=== PATIENT | male | born 1980 | race Caucasian/White ===

== ENCOUNTER 2019-10-14 13:17 | Observation (INO) | payer OTHER ==
[2019-10-14] MEDS ORDERED: SODIUM CHLORIDE 0.9% 1,000 ML IV STA (13:42)
[2019-10-14 14:01] LABS: BASOPHILS % (AUTO) 0.5 %; EOSINOPHILS # (AUTO) 0.1 10^3/uL (0.0-0.7); EOSINOPHILS % (AUTO) 0.9 %; HGB - HEMOGLOBIN 16.3 g/dL (14.0-18.0); LYMPHOCYTES # (AUTO) 1.8 10^3/uL (1.5-3.5); LYMPHOCYTES % (AUTO) 20.7 %; MEAN CORPUSCULAR HEMOGLOBIN 27.7 pg (27.0-31.0); MEAN CORPUSCULAR HGB CONC 33.2 g/dL (32.0-36.0); MEAN CORPUSCULAR VOLUME 83.5 fL (80.0-94.0); MEAN PLATELET VOLUME 9.1 fL (7.4-11.4); MONOCYTES # (AUTO) 0.6 10^3/uL (0.0-1.0); MONOCYTES % (AUTO) 6.6 %; NEUTROPHILS % (AUTO) 70.9 %; PLT - PLATELET COUNT 249 10^3/uL (130-450); RED BLOOD COUNT 5.88 10^6/uL (4.70-6.10); RED CELL DISTRIBUTION WIDTH 12.9 % (12.0-15.0); WHITE BLOOD COUNT 8.5 x10^3/uL (4.8-10.8)
[2019-10-14 14:15] LABS: ALBUMIN 4.7 g/dL (3.2-5.5); ALBUMIN/GLOBULIN RATIO 1.6 (1.0-2.2); BILIRUBIN,TOTAL 0.8 mg/dL (0.2-1.0); CALCIUM 9.6 mg/dL (8.5-10.3); CREATININE 1.1 mg/dL (0.6-1.2); TOTAL PROTEIN 7.7 g/dL (6.7-8.2)
--- NOTE | 2019-10-14 14:23 | XRAY Report ---
PROCEDURE: Chest 1 View X-Ray INDICATIONS: Chest Pain TECHNIQUE: One view of the chest was acquired. COMPARISON: None. FINDINGS: Surgical changes and devices: None. Lungs and pleura: No pleural effusions or pneumothorax. No acute consolidation. There are 2 small in distinct nodular opacities projecting over the right lung base likely represent confluence of vascula r and rib structures. Mediastinum: Mediastinal contours appear normal. Heart size is normal. Bones and chest wall: No suspicious bony lesions. Overlying soft tissues appear unremarkable. IMPRESSION: 1. No definite acute cardiopulmonary disease. Reviewed by: Jaylan Romano MD on 10/14/2019 2:21 PM PDT Approved by: Jaylan Romano MD on 10/14/2019 2:21 PM PDT Station ID: [id number]
--- NOTE | 2019-10-14 14:32 | ED Physician Documentation ---
History of Present Illness - Stated complaint Stated Complaint: DIZZY, LIGHTHEADED - Chief complaint Chief Complaint: General - History of Present Illness Timing: Prior to arrival, How many hours ago (6) - Additonal information Additional information: 39-year-old male presents to the emergency department for evaluation of feeling lightheaded dizzy and nauseated. He has been having persistent paroxysmal spells over the course of the morning. He states he had something similar when he was 18 and dehydrated. However approximately 2 weeks ago he did develop some chest pain and he saw his primary care doctor who then referred him to a thread winder. He is scheduled to have an echo and stress test in the upcoming set 7 to 10 days. However as he was very anxious he presents to the ED now. he did take 3 baby aspirin about 1 hour prior to arrival Patient reports to me that his EKG at the thread winder office was without concern. Patient states he has a newly diagnosed history of hypertension and hyperlipidemia. He has not been started on any medication. He is a social drinker. Non-smoker no history of illicit substance abuse At the time in the ED right now he denies chest pain or pressure. He does not feel short of breath. He endorses feeling anxious and nervous. Manager Of Information: Dr. Archuleta ([facility]) [phone] Review of Systems Constitutional: denies: Fever, Chills Cardiac: reports: Chest pain / pressure. denies: Palpitations, Pedal edema, Calf pain Respiratory: denies: Dyspnea, Cough GI: reports: Nausea. denies: Abdominal Pain, Abdominal Swelling, Vomiting : denies: Dysuria, Frequency PD PAST MEDICAL HISTORY - Past Medical History Past Medical History: Yes Cardiovascular: Hypertension, High cholesterol - Past Surgical History Past Surgical History: No - Allergies Allergies/Adverse Reactions: Allergies Allergy/AdvReac Type Severity Reaction Status Date / Time No Known Drug Allergies Allergy Verified 10/14/19 13:40 - Social History Does the pt smoke?: No Smoking Status: Never smoker PD ED PE NORMAL - General General: Alert and oriented X 3, No acute distress, Well developed/nourished - HEENT HEENT: PERRL, EOMI - Neck Neck: Supple, no meningeal sign, No bony TTP, No adenopathy - Cardiac Cardiac: RRR, No murmur, No gallop, No rub, Strong equal pulses - Respiratory Respiratory: No respiratory distress - Abdomen Abdomen: Normal bowel sounds, Non tender - Male Male : Deferred, Pt declined - Back Back: No CVA TTP, No spinal TTP - Derm Derm: Normal color, Warm and dry - Extremities Extremities: No deformity - Neuro Neuro: Alert and oriented X 3, instructional manager 2-12 intact, No motor deficit Eye Opening: Spontaneous Motor: Obeys Commands Verbal: Oriented GCS Score: 15 Results - Vitals Vitals: Vital Signs - 24 hr 10/14/19 10/14/19 13:28 15:39 Temperature 36.6 C Heart Rate 90 107 H Respiratory 16 17 Rate Blood Pressure 152/96 H 158/93 H O2 Saturation 100 100 Oxygen O2 Source Room air - EKG (time done) 1347 Rate: Rate (enter#) (94) Rhythm: NSR [place]: Normal Intervals: Normal UT QRS: Normal Ischemia: Other (t wave flattening diffusely) Compare to prior EKG: Old EKG unavailable Computer interpretation: Agree with computer 1442 Rhythm: NSR [place]: Normal Intervals: Normal UT QRS: Normal Ischemia: T wave inversion Compare to prior EKG: Changed from prior EKG Computer interpretation: Agree with computer (New T wave inversion V4 V5) - Labs Labs: Laboratory Tests 10/14/19 10/14/19 10/14/19 13:54 13:54 13:54 WBC 8.5 RBC 5.88 Hgb 16.3 Hct 49.1 MCV 83.5 MCH 27.7 MCHC 33.2 RDW 12.9 Plt Count 249 MPV 9.1 Neut # (Auto) 6.0 Lymph # (Auto) 1.8 Randolph # (Auto) 0.6 Eos # (Auto) 0.1 Baso # (Auto) 0.0 Absolute Nucleated RBC 0.00 Nucleated RBC % 0.0 Sodium 137 Potassium 3.4 L Chloride 99 L Carbon Dioxide 25 Anion Gap 13.0 BUN 14 Creatinine 1.1 Estimated GFR (MDRD) 74 L Glucose 129 H Calcium 9.6 Total Bilirubin 0.8 AST 28 ALT 37 Alkaline Phosphatase 67 Troponin I High Sens < 2.3 L Total Protein 7.7 Albumin 4.7 Globulin 3.0 Albumin/Globulin Ratio 1.6 Lipase 31 10/14/19 15:26 WBC RBC Hgb Hct MCV MCH MCHC RDW Plt Count MPV Neut # (Auto) Lymph # (Auto) Randolph # (Auto) Eos # (Auto) Baso # (Auto) Absolute Nucleated RBC Nucleated RBC % Sodium Potassium Chloride Carbon Dioxide Anion Gap BUN Creatinine Estimated GFR (MDRD) Glucose Calcium Total Bilirubin AST ALT Alkaline Phosphatase Troponin I High Sens < 2.3 L Total Protein Albumin Globulin Albumin/Globulin Ratio Lipase - Rads (name of study) CXR Radiology: Final report received (No acute cardiopulmonary process) PD MEDICAL DECISION MAKING - ED course Complexity details: reviewed results, re-evaluated patient, d/w patient, d/w sap basis consultant ED course: 39-year-old male presents to the emergency department for evaluation of nausea lightheadedness and Dizziness that has been paroxysmal. 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 His history is preceded by chest pain pressure approximately 2 weeks ago for which he was referred to c ardiologist Dr. Lan through [facility]. He has a pending stress test and echocardiogram upcoming in the next week. - On initial presentation his EKG shows diffuse T wave flattening. Patient has denied any chest pain, pressure or dyspnea while in the ED. His initial high- sensitivity troponin is negative. Approximately 1 hour after presentation I did repeat his EKG and noted that he had acute T wave inversions V4 V5. A second troponin was also ordered at that time and remained negative. - I was able to speak with his thread winder on the phone. He would recommend admission for stress test and echo at this time. He would not recommend transfer unless the troponins are positive. - I have spoken on the phone with her admitting hospitalist Dr. Fox and at this time she agrees to admit the patient to an observation status for stress test and echo. Troponins will be trended. Departure - Departure Disposition: ED Place in Observation Clinical Impression: Acute electrocardiogram changes, Light-headed feeling
[2019-10-14] MEDS ORDERED: NITROGLYCERIN SL 0.4 MG TABLET SL STA (14:35)
[2019-10-14] MEDS ORDERED: ASPIRIN CHEW 81 MG TABLET PO STA (14:47)
[2019-10-14] MEDS ORDERED: ZOLPIDEM 5 MG TABLET PO PRN (16:17)
[2019-10-14] MEDS ORDERED: MORPHINE 2 MG/ML CARPUJECT IVP PRN (16:17)
[2019-10-14] MEDS ORDERED: ACETAMINOPHEN 325 MG TABLET PO PRN (16:17)
[2019-10-14] MEDS ORDERED: ONDANSETRON 4 MG/2 ML VIAL IVP PRN (16:17)
[2019-10-14] MEDS ORDERED: SODIUM CHLORIDE FLUSH 0.9% 10 ML SYRINGE IVP PRN (16:17)
--- NOTE | 2019-10-14 17:28 | HISTORY & PHYSICAL EXAMINATION ---
Chief Complaint - Chief Complaint Chief Complaint: dizziness History of Present Illness - Admitted From Admitted From:: ER - History Obtained From Records Reviewed: [facility] History obtained from: pt - History of Present Illness HPI Comment/Other: 39-year-old male With past medical history of hypertension and hyperlipidemia but not on medication yet, Who presents to the emergency department for evaluation of nausea, and lightheadedness and Dizziness which has been paroxysmal. pt report he had chest pain pressure approximately 2 weeks ago for which he was referred by his PCP to compensation vice president Dr. Archuleta. pt had pending stress test and echocardiogram upcoming in the next week. He had nausea, and lightheadedness and Dizzinessa [place]. Patient denied chest pain, pressure or dyspnea while in the ER On ER, initial his EKG shows diffuse T wave flattening and initial high- sensitivity troponin is negative. but repeated EKG after one hour later show acute T wave inversions V4 V5. A second troponin also remained negative. ER provider speak with his compensation vice president on the phone. He would recommend admission for stress test and echo at this time. He would not recommend transfer unless the troponins are positive. pt was admitted in observation unit for further medical management. Discussed care goal with the patient, patient request full code History - Past Medical History Cardiovascular: reports: Hypertension, High cholesterol MRSA Hx?: No - Family & Social History Family History: Mother: Alive and Well, Father: Alive and Well Family History Comment/Other: Patient reported his father has hypertension and pre-diabetic. He did not know much about his mother Social History Notes: Patient denies cigarette smoking, denies alcohol and drug abusive or any issue Meds/Allgy - Allergies Allergies/Adverse Reactions: Allergies Allergy/AdvReac Type Severity Reaction Status Date / Time No Known Drug Allergies Allergy Verified 10/14/19 13:40 Review of Systems - Constitutional Constitutional: denies: Fatigue, Fever, Chills, Malaise, Weakness, Poor appetite, Diaphoresis, Night sweats - Eyes Eyes: denies: Pain, Blurred vision, Spots in vision, Field loss, Vision loss, Dipolpia - Ears, Nose & Throat Ears, Nose & Throat: denies: Ear pain, Hearing aids, Nasal discharge, Nosebleeds, Nasal congestion, Postnasal drainage, Mouth lesions, Dental decay - Cardiovascular Cariovascular: reports: Lightheadedness. denies: Irregular heart rate, Palpitations, Chest pain, Edema, Syncope, Exertional dyspnea, Decr. exercise tolerance - Respiratory Respiratory: denies: Cough, Sputum production, Wheezing, Snoring, Hemoptysis, Orthopnea, SOB at rest, SOB with exertion, Apnea - Gastrointestinal Gastrointestinal: denies: Abdominal pain, Constipation, Diarrhea, Change in bowel habits, Black stools, Bloody stools, Nausea, Vomiting, Feng blood emesis, Coffee grounds emesis - Genitourinary Genitourinary: denies: Dysuria, Frequency, Urgency, Incontinence, Flank pain - Musculoskeletal Musculoskeletal: denies: Muscle pain, Back pain, Muscle aches, Limited range of motion, Muscle weakness, Joint swelling - Integumentary Integumentary: denies: Rash, Lesions, Dryness, Lumps, Pigment changes - Neurological Neurological: denies: General weakness, Focal weakness, Headache, Dizziness, Numbness, Memory problems, Pre-existing deficit, Abnormal gait, Seizures, Incoordination, Slurred speech - Psychiatric Psychiatric: denies: Depression, Suicidal, Delusions, Hallucinations, Homicidal - Endocrine Endocrine: denies: Polyuria, Polydypsia, Polyphagia - Hematologic/Lymphatic Hematologic/Lymphatic: denies: Anemia, Bruising, Petechiae, Blood clots, Lymphadenopathy Exam - Vital Signs Vital Signs: Vital Signs x48h Temp Pulse Pulse Resp BP BP Pulse Ox 10/14/19 17:05 36.7 C 107 H 20 152/94 H 98 10/14/19 16:53 103 H 18 146/92 H 100 10/14/19 15:39 107 H 17 158/93 H 100 10/14/19 13:28 36.6 C 90 16 152/96 H 100 - Physical Exam General Appearance: positive: No acute distress, Alert. negative: Lethargic Eyes Bilateral: positive: Normal inspection, PERRL, No lid inflammation ENT: positive: ENT inspection nml, Pharynx nml, No signs of dehydration. negative: Purulent nasal drainage Neck: positive: Nml inspection, Thyroid nml, Trachea midline. negative: Th yromegaly, Stiff neck, Tracheal deviation Respiratory: positive: Chest non-tender, No respiratory distress, Breath sounds nml. negative: Wheezes, Rales, Rhonchi Cardiovascular: positive: Regular rate & rhythm, No murmur. negative: Irregularly irregular, Tachycardia, Bradycardia, Systolic murmur, Diastolic murmur Peripheral Pulses: positive: 2+ Abdomen: positive: Non-tender, No organomegaly, Nml bowel sounds, No distention. negative: Tenderness, Guarding, Rebound Back: positive: Nml inspection. negative: CVA tenderness (R), CVA tenderness (L) Skin: positive: Color nml, No rash, Warm, Dry. negative: Cyanosis, Diaphoresis, Pallor Extremities: positive: Non-tender, Full ROM, Nml appearance. negative: Calf tenderness, Saman's sign/cords Neurologic/Psychiatric: positive: Oriented x3, Motor nml, Sensation nml, Mood/affect nml. negative: Weakness, Sensory loss, Facial droop, Slurred/abnml speech, Depressed mood/affect Sepsis Event Note (H) - Evaluation Current Stage of Sepsis: Ruled out Conclusion/Plan - Problem List (1) Acute electrocardiogram changes Conclusion/Plan: Patient did present electrocardiogram change, patient present V [address] depression. Twice troponin test is negative, ER provider contacted with the patient compensation vice president, he recommendation patient admitted for stress test and the echo, continue serial troponin test, Continue telemetry and vital signs monitor patient. We will check lipid panel (2) Light-headed feeling Conclusion/Plan: Patient report lightheaded on today. But Now he feels better, no lightheaded, also he denies chest pain or pressure. Follow patient compensation vice president recommendation, we will finish stress test on tomorrow and echo. We will continue use telemetry and vital signs monitor patient. (3) HTN (hypertension) Conclusion/Plan: Patient report His compensation vice president recommended HTN to him, but he was not starting yet on blood pressure medicine. Since the patient has elevated blood pressure with tachycardia, and had chest pressure and pain in the past and with EKG change now, we will start with metoprolol, Continue telemetry and vital signs monitor (4) HLD (hyperlipidemia) Conclusion/Plan: Patient report he take a 40 mg Lipitor in the home, so we will resume, and we will check a lipid panel - Lab Results Fish Bones: 10/14/19 13:54 10/14/19 13:54 Core Measures - Anticipated LOS I expect patient to be DC'd or transferred within 96 hours.: Yes - DVT/VTE - Prophylaxis VTE/DVT Device ordered at admit?: Yes VTE/DVT Prophylaxis med ordered at admit?: Yes
[2019-10-14] MEDS ORDERED: NITROGLYCERIN SL 0.4 MG TABLET SL PRN (17:29)
[2019-10-14] MEDS ORDERED: POTASSIUM CHLORIDE 20 MEQ TABLET PO ONE (18:00)
[2019-10-14] MEDS ORDERED: METOPROLOL TARTRATE 25 MG TABLET PO SCH ×2 (18:15→21:00)
[2019-10-14] MEDS: PANTOPRAZOLE 40 MG TABLET PO SCH (18:38)
[2019-10-14] MEDS: SODIUM CHLORIDE FLUSH 0.9% 10 ML SYRINGE IVP SCH (18:39)
[2019-10-14] MEDS ORDERED: ATORVASTATIN 40 MG TABLET PO SCH (21:00)
[2019-10-15] MEDS: SODIUM CHLORIDE FLUSH 0.9% 10 ML SYRINGE IVP SCH ×2 (00:08→08:56)
[2019-10-15 05:26] LABS: BASOPHILS % (AUTO) 0.4 %; EOSINOPHILS # (AUTO) 0.2 10^3/uL (0.0-0.7); EOSINOPHILS % (AUTO) 1.8 %; HGB - HEMOGLOBIN 15.4 g/dL (14.0-18.0); LYMPHOCYTES # (AUTO) 2.1 10^3/uL (1.5-3.5); LYMPHOCYTES % (AUTO) 25.1 %; MEAN CORPUSCULAR HGB CONC 31.6 g/dL (32.0-36.0); MEAN CORPUSCULAR VOLUME 85.3 fL (80.0-94.0); MEAN PLATELET VOLUME 9.4 fL (7.4-11.4); MONOCYTES # (AUTO) 0.6 10^3/uL (0.0-1.0); MONOCYTES % (AUTO) 7.7 %; NEUTROPHILS # (AUTO) 5.4 10^3/uL (1.5-6.6); NEUTROPHILS % (AUTO) 64.8 %; PLT - PLATELET COUNT 243 10^3/uL (130-450); RED BLOOD COUNT 5.71 10^6/uL (4.70-6.10); RED CELL DISTRIBUTION WIDTH 13.1 % (12.0-15.0); WHITE BLOOD COUNT 8.3 x10^3/uL (4.8-10.8)
[2019-10-15 05:47] LABS: CALCIUM 9.4 mg/dL (8.5-10.3); CREATININE 1.1 mg/dL (0.6-1.2); MAGNESIUM 2.2 mg/dL (1.7-2.8); PHOSPHORUS 4.4 mg/dL (2.5-4.6)
[2019-10-15 06:07] LABS: CHOL/HDL RATIO 3.3 (<5.0); CHOLESTEROL 138 mg/dL; HDL CHOLESTEROL 42 mg/dL; LDL CHOLESTEROL,CALCULATED 74 mg/dL; LDL/HDL RATIO 1.8 (<3.6); VLDL CHOLESTEROL 22 mg/dL
[2019-10-15] MEDS: PANTOPRAZOLE 40 MG TABLET PO SCH (06:23)
[2019-10-15] MEDS ORDERED: ENOXAPARIN 40 MG/0.4 ML SYRINGE SUBQ SCH (09:00)
[2019-10-15] MEDS ORDERED: ASPIRIN CHEW 81 MG TABLET PO SCH (09:00)
[2019-10-15] MEDS ORDERED: amLODIPine 5 MG TABLET PO SCH (13:51)
--- NOTE | 2019-10-15 14:24 | PHARMACY PROGRESS NOTE ---
- Best Possible Medication History Admit Date and Time: 10/14/19 1617 Processed by: Pharmacy Medication History completed: Yes Secondary Source(s): Physician records, Pharmacy records As the person ultimately responsible for medication therapy, providers are able to order a medication from an existing home medication list in [facility] via the "Reconcile Routine" prior to Confirmation of that medication by student support counselor. Such practice is discouraged except when the physician, in their clinical judgment, deems that a medical need exists for a medication without regard to previous use.
--- NOTE | 2019-10-15 14:54 | Nuclear Medicine Report ---
PROCEDURE: Rest and exercise myocardial perfusion SPECT with gated imaging and ejection fraction INDICATIONS: chest pain RADIOPHARMACEUTICAL: 8.4 mCi Tc-99m Myoview IV at rest and 25.6 mCi Tc-99m Myoview IV at peak exerci se. [id number] was performed. TECHNIQUE: Radiopharmaceutical was injected at peak stress test, and also at rest. SPECT images wer e obtained. SPECT myocardial perfusion images were displayed in short axis, horizontal long axis, an d vertical long axis views. Gated images were reviewed using Auto[employer] software. COMPARISON: None available. FINDINGS: Raw data: There is good myocardial labeling by radiotracer. No significant motion artifacts. Lung- to-heart ratio is (normal is less than 0.38 for tetrafosmin tracer). Left ventricle function: Gated images demonstrate normal left ventricle wall thickening. No segment al wall motion abnormality. No transient ischemic dilation; TID is 1.25 (normal less than 1.3). The left ventricle resting end-diastolic volume is 79 mL. Left ventricle stress ejection fraction is 67 %; normal values are above 45%. Myocardial perfusion: There is moderate size, [id number] severe, fixed defect in the anterio r apex, which is improved on prone imaging. There is probably caused by attenuation artifact. There i s otherwise normal distribution of activity in the left and right ventricular myocardium. No reversi ble perfusion defects to suggest myocardial ischemia. IMPRESSION: 1. Probably normal myocardial perfusion images. 2. There is a moderate size, xtob-sz-trcewlhosj severe, fixed perfusion defect in the anterior apex, most likely caused by attenuation artifact. No reversible perfusion defect to suggest myocardial isch emia. 3. Normal left ventricular volume and systolic function. 4. Borderline TID score. TID (transient ischemic dilation) is associated with triple-vessel disease. In the absence of perfusion defect, TID suggests balanced multivessel coronary artery disease. PQRS ATTESTATIONS: Measure 322 - Is this imaging test primarily performed on a low-risk surgery patient for preoperative evaluation within 30 days preceding their low-risk non-cardiac surgery? Low-risk surgery is defined as cardiac or myocardial infarction less than 1%, including (but not limited to) endoscopic pr ocedures, superficial procedures, cataract surgery, and excisional breast surgery: Answer: No Measure 323 - Is this imaging test performed primarily for the monitoring of an asymptomatic patient who had percutaneous coronary intervention on the visit date or within 2 years of the visit date? An swer: No Measure 324 - Is this imaging test performed primarily for the initial detection and risk assessment on an asymptomatic, low coronary heart disease patient? Low CHD risk definition = clinicians should consider the maximum number of available patient factors used to estimate risk based on [place] (A TP III criteria), typically age, gender, diabetes, smoking status, and use of blood pressure medicati on, and integrate age appropriate estimates for missing elements, such as LDL or standard blood press ure. Answer: No Reviewed by: William Miller MD on 10/15/2019 2:53 PM PDT Approved by: William Miller MD on 10/15/2019 2:53 PM PDT Station ID: [id number]
--- NOTE | 2019-10-15 15:19 | Discharge Plan ---
Discharge Plan Problem Reviewed?: Yes Disposition: Home, Self Care Condition: Serious Prescriptions: Nitroglycerin [Nitrostat] 0.4 mg SL Q5MIN PRN #100 tablet PRN Reason: Chest Pain Metoprolol Succinate [Toprol Xl] 25 mg PO DAILY #30 tablet Diet: Low Sodium (Low sodium, low fat, cardiac diet) Activity Restrictions: Additional Comments (No exercise, no sexual activity, no work around the house, & released from work until seen by your Ct Mri Technologist) Shower Restrictions: No Driving Restrictions: No (No driving if you have recurrent dizziness) Instruction Topics: Metoprolol extended-release tablets, Angina, Nitroglycerin Fast Acting Health Concerns: You were here in Observation status to test your cardiac enzymes for a heart attack and have an Echo and a stress test. There was no heart attack, your heart function is normal at rest. The stress test had an abnormality seen on the EKG portion as well as on the nuclear images, this suggest you have significant coronary artery blockages. You are being put on medicine for your blood pressure and to treat these findings on your stress test. The new prescriptions were electronically sent to your pharmacy. You are advised to now have light activity, no sex, no work around the house, and you are released from work for medical reasons, until seen by your Ct Mri Technologist. I spoke to Dr. Archuleta who recommends that you see him next week [facility]. You are being given paper copies of your various test results and he wants you to bring these to that appointment. Plan of Treatment: As above. Care Goals: Improvement in symptoms and stabilization are the goals. Assessment: The patient understands and is agreeable with the plan. Additional Instructions or Follow Up instructions: If you have new or worsening symptoms, call 911, come to the ER, or call your PCP or Ct Mri Technologist for guidance. No Smoking: If you smoke, Please STOP! Call for help. Follow-up with: SUSSY NIELSEN MD [Primary Care Provider] -
--- NOTE | 2019-10-15 15:34 | CARDIAC PROCEDURE NOTE ---
DATE OF SERVICE: 10/15/2019 Physician: Esthela Shahid MD, [facility] INDICATION: Chest pain. CARDIAC RISK FACTORS 1. Male gender. 2. Untreated hypertension. 3. Hyperlipidemia. DESCRIPTION OF PROCEDURE: After signing informed consent, patient underwent a Triston-protocol treadmill stress test with nuclear myocardial perfusion imaging. RESTING HEART RATE: 83. PEAK HEART RATE: 167 (93% predicted maximum heart rate for age). RESTING BLOOD PRESSURE: 148/100. PEAK BLOOD PRESSURE: 212/96. Patient exercised for 8 minutes and 20 seconds on a Triston-protocol treadmill. He achieved a peak heart rate of 167 (93% PMHR). He also achieved 10.2 METS. Patient had no chest pain, mild shortness of breath and rated his perceived exertion at 14/20 on the Charity scale at peak. Oxygen saturation was 95-98% on room air throughout the entire test. RESTING EKG: Normal sinus rhythm, left atrial enlargement, biphasic/flat T- waves in leads II, aVF, and V4 through V6, T wave inversion in lead III. EKG AT PEAK: [address] depressions in leads II, III, aVF, and V4 through V6, with continued biphasic T waves in the same leads. After 3 minutes of recovery, there is pseudo-normalization of T-waves becoming upright and then at 5 minutes return to biphasic or flat T-waves. SUMMARY: 1. Abnormal resting EKG. 2. New ST segment depressions occur with exertion, consistent with ischemia. 3. Good exercise tolerance. 4. Nuclear images reported separately. 5. This patient's cardiac risk based on all the above: Moderate-High. cc: Gisel Zapata, TD: 10/15/2019 14:35 [facility]
--- NOTE | 2019-10-15 16:12 | DISCHARGE SUMMARY ---
Discharge Summary Admit Date: 10/14/19 Discharge Date: 10/15/19 Discharging Provider: Dr Esthela Shahid Primary Care Provider: Dr Sultana Zapata Condition at Discharge: Serious Discharge Disposition: 01 Home, Self Care - HPI History of Present Illness: From the admission H&P of Colt Gillespie NP: This is a 39-year-old white male with past medical history of recently diagnosed hypertension and hyperlipidemia, taking Atorvastatin only, but not on BP medication yet. He presents to the emergency department for evaluation of nausea, and lightheadedness and dizziness which has been paroxysmal. He had chest pain described as pressure approximately 2 weeks ago for which he was referred by his PCP to a [employer], Dr. Archuleta, and a stress test and Echocardiogram were ordered and are upcoming in the next week. He presented with nausea, and lightheadedness and dizziness noted this morning while he was driving on [employer], coming to work from the [facility]. Patient denied chest pain, pressure or dyspnea while in the ER. In the ER, the initial EKG shows diffuse T wave flattening and initial high-sensitivity troponin is negative, but a repeated EKG after one hour later shows new T wave inversions in V4-V5. A second troponin also remained negative. The ER provider spoke with the patient's Flash Welder by phone, and he recommended placing the pt in Observation status for a stress test and Echo at this time. He did not recommend transfer unless the troponins are positive. The pt will be placed in Observation status for further work-up and medical management. I discussed care goals with the patient; patient requests to be a Full Code. - CONSULTS | PROCEDURES Procedures: Treadmill stress test with nuclear imaging. Echocardiogram. - HOSPITAL COURSE Hospital Course: 1) Abnormal EKG The resting EKG was abnormal and a repeat EKG showed new changes that could be consistent with ischemia. Troponins were normal. The resting EKG was normal, with LVEF 60%. 2) Abnormal stress test He underwent a stress test. He exercised to 93% pred max HR and had no chest pain. The EKG showed new [address] depressions in leads II, III, AVF and V4-V6 and 3 min after exercise, T wave changes were seen, changes all consistent with ischemia. The nuclear images showed resting LVEF 67%, fixed adelaida-apical defect (thought to be artifact), but abnormal Transient Ischemic Dilation (score of 1.25), which suggested "balanced ischemia" in all 3 coronary distributions. Due to this, his Flash [employer]der was contacted with the result. The pt will be seen by Dr Archuleta in the next several days, he was started on sl NTG prn and educated in its use, put on a daily aspirin and Metoprolol Succinate, an d given orders to remain off work and to have only light activity. 3) Lightheadedness There was a brief episode of lightheadedness one more time while here. 4) Hypertension, uncontrolled His BP ran 140-150/100. He was started on new Toprol XL 25 mg daily and discharged on this. 5) Hyperlipidemia We do not have his lipid results before starting recent Atorvastatin. His fasting lipid panel was done here and showed Total cholesterol: 138, LDL: 74, HDL: 42, Triglycerides: 110. His statin medication was continued. - ALLERGIES Allergies/Adverse Reactions: Allergies Allergy/AdvReac Type Severity Reaction Status Date / Time No Known Drug Allergies Allergy Verified 10/14/19 13:40 - MEDICATIONS Home Medications: Ambulatory Orders Medication Instructions Recorded Confirmed Aspirin Chewable [St Matt 81 mg PO DAILY #0 tablet 10/15/19 Aspirin] Atorvastatin Calcium 40 mg PO QPM 10/15/19 10/15/19 Metoprolol Succinate [Toprol Xl] 25 mg PO DAILY #30 tablet 10/15/19 Nitroglycerin [Nitrostat] 0.4 mg SL Q5MIN PRN #100 tablet 10/15/19 - PHYSICAL EXAM AT DISCHARGE General Appearance: positive: No acute distress, Alert Eyes Bilateral: positive: Normal inspection, EOMI ENT: positive: ENT inspection nml, No signs of dehydration Neck: positive: Nml inspection, No JVD Respiratory: positive: No respiratory distress, Breath sounds nml Cardiovascular: positive: Regular rate & rhythm, No murmur Abdomen: positive: Non-tender, No distention Skin: positive: Color nml Extremities: positive: Non-tender, No pedal edema Neurologic/Psychiatric: positive: Oriented x3, Other (Non-focal) - LABS Result Diagrams: 10/15/19 04:30 10/15/19 04:30 - DIAGNOSTIC IMAGING Diagnostic Imaging Results: Final report reviewed - SEPSIS Current Stage of Sepsis: Ruled out - FOLLOW UP Follow Up: See [employer]der next week. - TIME SPENT Time Spent in Discharge (Minutes): 30
[2019-10-15 17:10] VITALS: BP 140/87
== END 2019-10-15 17:17 | disposition home or self-care (01) ==
LOC: ED 13:17 → MS2 16:17
PROVIDERS: ADMIT Nurse Practitioner Gerontology; ATTEND Internal Medicine
DX: R94.39 Abnormal result of other cardiovascular function study (principal); R42 Dizziness and giddiness; I10 Essential (primary) hypertension; E78.5 Hyperlipidemia, unspecified
CPT/HCPCS: 36415; 71045; 78452; 80048; 80053; 80061; 83690; 83735; 84100; 84484; 85025; 93005; 93017; 93306; 96360; 96372; 99284; 99285; A9270; A9500; G0378; J1650; 83721